=== PATIENT | female | born 1960 | race Caucasian/White ===

== ENCOUNTER 2018-09-23 07:44 | Day surgery (SDC) | payer OTHER ==
[~2018-09-23] VITALS: Ht 154.9 cm; Wt 95.8 kg
[~2018-09-23 07:44] MED LIST: ALBU90OI61 INH; ASPI81CH PO; ATOR20 PO; Aspirin EC81 MG PO; BREO ELLIPTA 11 EACH INH; BUPR150ER PO; Budeprion Sr150 MG PO; CEPH500 PO; DULO30 PO; DULO60 PO; GABA300 PO; GLIP5 PO; GLIP5ER PO; Lisinopril2.5 MG; Lisinopril2.5 MG PO; METF500C PO; Metformin HCl500 MG PO; OMEPRAZOLE MAGN20 MG PO; TIOT18 INH; Zantac150 MG PO; [UNRECOGNIZED DRUG - OTHER]
== END 2018-09-23 10:52 | disposition home or self-care (01) ==
LOC: ORSCSDS 07:44
PROVIDERS: Internal Medicine Gastroenterology
PROC: 0DB68ZX Excision of Stomach, Via Natural or Artificial Opening Endoscopic, Diagnostic (ICD-10-PCS; principal; 2018-09-23 09:30)
PROC: 0DB58ZX Excision of Esophagus, Via Natural or Artificial Opening Endoscopic, Diagnostic (ICD-10-PCS; principal; 2018-09-23 09:30)
PROC: 0D758ZZ Dilation of Esophagus, Via Natural or Artificial Opening Endoscopic (ICD-10-PCS; principal; 2018-09-23 09:30)
PROC: 0DBN8ZX Excision of Sigmoid Colon, Via Natural or Artificial Opening Endoscopic, Diagnostic (ICD-10-PCS; principal; 2018-09-23 09:30)
DX: K21.9 Gastro-esophageal reflux disease without esophagitis (principal); R13.10 Dysphagia, unspecified; K22.10 Ulcer of esophagus without bleeding; K29.70 Gastritis, unspecified, without bleeding; Z12.11 Encounter for screening for malignant neoplasm of colon; Z86.010 Personal history of colon polyps; K63.5 Polyp of colon; I10 Essential (primary) hypertension; J45.909 Unspecified asthma, uncomplicated; G47.33 Obstructive sleep apnea (adult) (pediatric); F17.210 Nicotine dependence, cigarettes, uncomplicated; E11.9 Type 2 diabetes mellitus without complications; E66.01 Morbid (severe) obesity due to excess calories; Z68.39 Body mass index [BMI] 39.0-39.9, adult; Z79.899 Other long term (current) drug therapy
CPT/HCPCS: 82947; 88305; 88342; J7120

== ENCOUNTER → 2019-02-15 | Outpatient (CLI) | payer OTHER ==
[~2019-02-15] MED LIST changes: +DULERA 100 MCG/13 GM INH; +TIOT18
== END | disposition home or self-care (01) ==
LOC: LAB SHORT 08:21 → LAB 08:21 → LAB SHORT 02-16 08:21
PROVIDERS: Nurse Practitioner
DX: Z01.419 Encounter for gynecological examination (general) (routine) without abnormal findings (principal)
CPT/HCPCS: G0145

== ENCOUNTER 2019-03-23 23:21 | Observation (INO) | payer OTHER ==
[~2019-03-23] VITALS: Ht 154.9 cm; Wt 99.6 kg
[~2019-03-23 23:21] MED LIST changes: -DULERA 100 MCG/13 GM INH; -TIOT18
[2019-03-24] MEDS ORDERED: TIOT18 (00:27)
[2019-03-24] MEDS ORDERED: DULERA 100 MCG/13 GM INH (00:27)
[2019-03-24 00:32] LABS: BASOPHILS ABSOLUTE AUTO 0.07 K/mm3 (0.00-0.23); BASOPHILS PERCENT AUTO 1 % (0-2); EOSINOPHILS ABSOLUTE AUTO 0.51 K/mm3 (0.00-0.68); EOSINOPHILS PERCENT AUTO 6 % (0-6); Hematocrit 31.1 % (33.0-51.0); Hemoglobin 9.7 g/dL (11.5-16.0); IMMATURE GRAN ABSOLUTE AUTO 0.02 K/mm3 (0.00-0.10); IMMATURE GRAN PERCENT AUTO 0 % (0-1); LYMPHOCYTES ABSOLUTE AUTO 2.73 K/mm3 (0.84-5.20); LYMPHOCYTES PERCENT AUTO 34 % (21-46); MONOCYTES ABSOLUTE AUTO 0.59 K/mm3 (0.16-1.47); MONOCYTES PERCENT AUTO 7 % (4-13); Mean Corpuscular HGB 27.4 pg (26.0-34.0); Mean Corpuscular HGB Conc 31.2 g/dL (31.5-36.5); Mean Corpuscular Volume 88 fL (80-100); Mean Platelet Volume 9.8 fL (9.1-12.4); NEUTROPHILS ABSOLUTE AUTO 4.21 K/mm3 (1.96-9.15); NEUTROPHILS PERCENT AUTO 52 % (41-73); Platelet Count 295 K/mm3 (150-400); RDW Coefficient Variation 15.3 % (11.7-14.2); RDW Standard Deviation 49.2 fL (35.1-46.3); Red Blood Cell Count 3.54 M/mm3 (3.80-5.20); White Blood Cell Count 8.13 K/mm3 (4.00-11.30)
[2019-03-24 00:50] LABS: Ethanol (Alcohol), Blood, Med <3 mg/dL
[2019-03-24 00:51] LABS: Alanine Aminotransfer (ALT/SGP 16 U/L (12-78); Albumin/Globulin Ratio 0.9 (0.8-1.8); Alk Phos 101 U/L (50-136); Anion Gap 9 mmol/L (6-16); Aspartate Aminotrans (AST/SGOT 14 U/L (12-37); Bilirubin, Total 0.2 mg/dL (0.1-1.0); Blood Urea Nitrogen 28 mg/dL (8-24); Bun/Creatinine Ratio 17.8 (12.0-20.0); CO2, Blood 25 mmol/L (21-32); Calcium, Blood 8.1 mg/dL (8.5-10.1); Chloride, Blood 108 mmol/L (98-108); Creatinine, Blood 1.57 mg/dL (0.40-1.00); Globulin, Blood 3.2 g/dL (2.2-4.0); Glomerular Filtration Rate 36 (60-); Glucose, Blood 84 mg/dL (70-99); Potassium, Blood 3.5 mmol/L (3.5-5.5); Sodium, Blood 142 mmol/L (136-145); Total Protein, Blood 6.2 g/dL (6.4-8.2)
[2019-03-24 00:56] LABS: Source, Urine Clean Catch
[2019-03-24 00:58] LABS: Blood, Urine Neg (Neg); Glucose Qualitative, Urine Neg (Neg); Ketones, Urine 1+ (Neg); Leukocyte Esterase, Urine 1+ (Neg); Nitrite, Urine Neg (Neg); Protein, Urine 1+ (Neg); Urobilinogen, Urine 1+ (Normal)
[2019-03-24 01:04] LABS: Appearance, Urine Hazy (Clear); Bilirubin, Urine 1+ (Neg); Color, Urine Amber (P-Yellow); Red Blood Cells, Urine Not Seen /hpf (0-2)
[2019-03-24 01:05] LABS: Bacteria Many /hpf; Mucus Light (0-Heavy); Squamous Epithelial Cells Few /hpf (Few)
[2019-03-24 01:19] LABS: U Amphetamine Screen Not Detected; U Barbituate Screen Not Detected; U Methamphetamine Screen Not Detected
[2019-03-24 01:20] LABS: U Benzodiazapine Screen DETECTED; U Buprenorphine Screen Not Detected; U Cannabinoids Screen DETECTED; U Cocaine Screen Not Detected; U Methadone Screen Not Detected; U Opiates Screen Not Detected; U Oxycodone Screen Not Detected; U Phencyclidine Screen Not Detected; U Propoxyphene Screen Not Detected
[2019-03-24 04:45] LABS: Hematocrit 33.5 % (33.0-51.0); Hemoglobin 10.3 g/dL (11.5-16.0); Mean Corpuscular HGB 27.2 pg (26.0-34.0); Mean Corpuscular HGB Conc 30.7 g/dL (31.5-36.5); Mean Corpuscular Volume 89 fL (80-100); Mean Platelet Volume 9.7 fL (9.1-12.4); Platelet Count 279 K/mm3 (150-400); RDW Coefficient Variation 15.2 % (11.7-14.2); RDW Standard Deviation 49.2 fL (35.1-46.3); Red Blood Cell Count 3.78 M/mm3 (3.80-5.20); White Blood Cell Count 8.02 K/mm3 (4.00-11.30)
[2019-03-24 05:04] LABS: Albumin, Blood 2.9 g/dL (3.4-5.0); Albumin/Globulin Ratio 0.8 (0.8-1.8); Bilirubin, Total 0.1 mg/dL (0.1-1.0); Calcium, Blood 7.8 mg/dL (8.5-10.1); Creatinine, Blood 1.19 mg/dL (0.40-1.00); Globulin, Blood 3.5 g/dL (2.2-4.0); Potassium, Blood 4.1 mmol/L (3.5-5.5); Total Protein, Blood 6.4 g/dL (6.4-8.2)
--- NOTE | 2019-03-24 06:19 | NUR ---
DIRECTOR OF MAINTENANCE SUMMARY NEW ADMIT FROM THE ED TONIGHT. PT CAME IN AFTER HAVING A SYNCOPAL EPISODE AT HOME. HYPOTENSIVE WHEN SHE ARRIVED TO THE ER. SBP 106 WHEN SHE GOT TO MEDICAL FLOOR. PT AAOX4 AND PLEASANT. STANDBY ASSIST FOR SAFETY, PT EDUCATED TO USE CALL LIGHT TO ASK FOR ASSITANCE BEFORE GETTING UP ALONE. PT DENIES SOB, N/V, PAIN. VSS, WILL CONTINUE TO MONITOR.
--- NOTE | 2019-03-24 16:46 | NUR ---
SHIFT SUMMARY: PT IS A/O X 4 AND DENIES PAIN. PT SET UP FOR MEALS AND CONTINUES TO BE A X 1 ASSIST FOR TOILETING. PT ASKED THAT HER DAUGHTER WAS UPDATED AND THIS NURSE SPOKE WITH HER TWICE AND SHE ASKED THAT WE CALL HER WITH ANY DC PLANS SO SHE CAN MAKE ARRANGEMENTS TO PICK HER UP. PT HAS BEEN SLEEPING MOST OF DAY AND CALLS FOR HELP WHEN NEEDED.
--- NOTE | 2019-03-25 03:54 | NUR ---
SHIFT SUMMARY: PT IS ALERT AND ORIENTED. PT IS CALM AND COOPERATIVE WITH CARE. PT CALLS APPROPRIATELY. PT IS INDEPENDENT IN THE ROOM. PT DENIES PAIN, NAUSEA, VOMITING, AND SOB. PT SLEPT MOST OF THE NIGHT WITHOUT INCIDENT. POSSIBLE DC TODAY. NO ACUTE CHANGES OR COMPLICATIONS. WILL CONTINUE TO MONITOR.
[2019-03-25 08:27] LABS: Anion Gap 8 mmol/L (6-16); Blood Urea Nitrogen 16 mg/dL (8-24); Bun/Creatinine Ratio 18.8 (12.0-20.0); CO2, Blood 26 mmol/L (21-32); Calcium, Blood 9.1 mg/dL (8.5-10.1); Chloride, Blood 110 mmol/L (98-108); Creatinine, Blood 0.85 mg/dL (0.40-1.00); Glomerular Filtration Rate >60 (60-); Glucose, Blood 108 mg/dL (70-99); Potassium, Blood 4.3 mmol/L (3.5-5.5); Sodium, Blood 144 mmol/L (136-145)
--- NOTE | 2019-03-25 10:51 | NUR ---
PT DCD HOME WITH DAUGHTER. ALL MEDICATIONS AND INSTRUCTIONS REVIEWED WITH PT AND ALL QUESTIONS ANSWERED. ALL BELONGINGS SENT WITH PT. PT STABLE AND PLEASANT UPON DC.
== END 2019-03-25 10:50 | disposition home or self-care (01) ==
LOC: ER 23:21 → MEDS 23:22
PROVIDERS: Emergency Medicine; Internal Medicine; ADMIT Internal Medicine
DX: N17.9 Acute kidney failure, unspecified (principal); E86.0 Dehydration; R55 Syncope and collapse; N39.0 Urinary tract infection, site not specified; J44.9 Chronic obstructive pulmonary disease, unspecified; I10 Essential (primary) hypertension; E11.9 Type 2 diabetes mellitus without complications; E78.5 Hyperlipidemia, unspecified; F17.210 Nicotine dependence, cigarettes, uncomplicated; E66.9 Obesity, unspecified; Z79.899 Other long term (current) drug therapy; Z79.82 Long term (current) use of aspirin; Z79.84 Long term (current) use of oral hypoglycemic drugs; Z88.5 Allergy status to narcotic agent
CPT/HCPCS: 36415; 71046; 80048; 80053; 81001; 82947; 83605; 84484; 85025; 85027; 87040; 87086; 93005; 93010; 93306; 94640; 94760; 96361; 96365; 96372; 99285-25; G0378; G0480; J0696; J1650; J7030

== ENCOUNTER → 2023-01-12 | Outpatient (CLI) | payer MEDICARE, OTHER ==
[~2023-01-12] MED LIST changes: +DULERA 100 MCG/13 GM INH; +TIOT18
[2023-01-14 15:09] LABS: HPV 16 Negative (Negative); HPV 18 Negative (Negative); HPV OTHER HR TYPES Negative (Negative)
== END | disposition home or self-care (01) ==
LOC: LAB 14:32 → LAB SHORT 14:32
PROVIDERS: Obstetrics & Gynecology
DX: Z01.419 Encounter for gynecological examination (general) (routine) without abnormal findings (principal)
CPT/HCPCS: 87624; G0145

== ENCOUNTER 2023-03-04 09:20 | Day surgery (SDC) | payer MEDICARE, OTHER ==
[~2023-03-04] VITALS: Ht 154.9 cm; Wt 94.8 kg
[~2023-03-04 09:20] MED LIST changes: +CYCL10 PO; +EFFEXOR XR150 MG PO; +ROSU10TA PO
--- NOTE | 2023-03-04 09:45 | NUR ---
Ambulatory in Day Surgery History, Chart, Medications and Allergies reviewed before start of procedure.Patient has drank aproximately 240 cc of water this am am has a large tumbler in hand on arrival to [facility]. and Dr. Christensen aware. Lungs clear T/O to Auscultation. Patient States Post-Procedure ride home has been arranged.
[2023-03-04] MEDS ORDERED: L-THEANINE100 MG PO (09:55)
[2023-03-04 10:07] VITALS: BP 174/77
--- NOTE | 2023-03-04 11:02 | NUR ---
03/04/23 1102 Giovana Thibodeaux History, Chart, Medications and Allergies reviewed before start of procedure. LIDOCAINE 4% SPRAY NTO BACK OF THROAT PRIOR TO PROCEDURE
[2023-03-04 11:40] VITALS: BP 118/75
--- NOTE | 2023-03-04 11:46 | NUR ---
REPORT RECIEVED. PT SITTING UP IN BED TOLERATING PO FLUIDS. DR PEPPER AT BESIDE. VSS ON ROOM AIR
[2023-03-04 11:48] VITALS: BP 121/89
--- NOTE | 2023-03-04 12:00 | NUR ---
PT TOLERATING PO FLUIDS AND FOOD Patient up to Ambulate independently. Gait steady. Discharge instructions reviewed with patient. Patient verbalizes understanding. Copy given to patient to take home.
--- NOTE | 2023-03-04 12:10 | NUR ---
PT UP TO VOID Discharged via wheelchair to private car for ride home.
== END 2023-03-04 12:18 | disposition home or self-care (01) ==
LOC: ORSCMMR 09:20 → ORD 10:30 → ORSCMMR 12:18
PROVIDERS: Internal Medicine Gastroenterology
PROC: 0DB58ZX Excision of Esophagus, Via Natural or Artificial Opening Endoscopic, Diagnostic (ICD-10-PCS; principal; 2023-03-04 10:30)
PROC: 0D758ZZ Dilation of Esophagus, Via Natural or Artificial Opening Endoscopic (ICD-10-PCS; principal; 2023-03-04 10:30)
PROC: 0DJD8ZZ Inspection of Lower Intestinal Tract, Via Natural or Artificial Opening Endoscopic (ICD-10-PCS; principal; 2023-03-04 10:30)
DX: R13.14 Dysphagia, pharyngoesophageal phase (principal); K21.9 Gastro-esophageal reflux disease without esophagitis; R10.32 Left lower quadrant pain; E11.9 Type 2 diabetes mellitus without complications; Z87.891 Personal history of nicotine dependence; G47.33 Obstructive sleep apnea (adult) (pediatric); Z79.899 Other long term (current) drug therapy; E66.9 Obesity, unspecified; Z68.39 Body mass index [BMI] 39.0-39.9, adult
CPT/HCPCS: 82947; 88305; C1726; J2001; J2704; J7120

== ENCOUNTER 2025-05-23 18:32 | Emergency (ER) | payer OTHER, MEDICARE ==
[~2025-05-23] VITALS: Ht 154.9 cm; Wt 95.2 kg
[~2025-05-23 18:32] MED LIST changes: +GLIP10 PO; +L-THEANINE100 MG PO; +LIDO700A20 TOP
[2025-05-23] MEDS ORDERED: Lidocaine/Tetracaine/Epinephr 3 ML GEL SYRINGE TOP ONE (22:40)
[2025-05-24 00:10] VITALS: BP 131/81
== END 2025-05-24 00:13 | disposition home or self-care (01) ==
LOC: ER 18:32
DX: S82.64XA Nondisplaced fracture of lateral malleolus of right fibula, initial encounter for closed fracture (principal); S01.01XA Laceration without foreign body of scalp, initial encounter; F17.200 Nicotine dependence, unspecified, uncomplicated; K21.9 Gastro-esophageal reflux disease without esophagitis; I10 Essential (primary) hypertension; E78.00 Pure hypercholesterolemia, unspecified; J44.89 Other specified chronic obstructive pulmonary disease; E11.9 Type 2 diabetes mellitus without complications; W01.0XXA Fall on same level from slipping, tripping and stumbling without subsequent striking against object, initial encounter; Z79.899 Other long term (current) drug therapy; Z88.5 Allergy status to narcotic agent; Z88.8 Allergy status to other drugs, medicaments and biological substances
CPT/HCPCS: 12001; 29515; 70450; 73610; 90471; 90715; 99284-25; A9270